=== PATIENT | male | born 1955 | race Caucasian/White ===

== ENCOUNTER 2017-01-31 16:24 | Emergency (ER) | payer OTHER ==
--- NOTE | ~2017-01-31 | EKG ---
PATIENT: AMANDA MULLINS UNIT #: [id number] Ventricular Rate: 72 BPM Atrial Rate: 72 BPM P-R Interval: 134 ms QRS Duration: 86 ms Q-T Interval: 398 ms QTC Calculation(Bezet): 435 ms P [place]: 30 degrees Calculated R [place]: 7 degrees Calculated T [place]: 37 degrees Diagnosis Line: Normal sinus rhythm Diagnosis Line: Non Diagnostic Q in Lead Inferior leads Otherwise Diagnosis Line: normal ECG Diagnosis Line: When compared with ECG of 05-SEP-2014 07:41, Diagnosis Line: No significant change was found Diagnosis Line: Confirmed by OCHOA DE LEON MD ([id number]) on 02/02/2017 Diagnosis Line: 5:49:48 PM INTERPRETING MD: MOISES KOLB
--- NOTE | ~2017-01-31 | CR72 ---
[facility] A Service of [facility] RADIOLOGY TEXT RESULTS PATIENT: AMANDA MULLINS LOCATION: SED : 53 UNIT #: [id number] AGE: [address]: Cesar Jane PAC SEX: M ORDER DR: [id number] [place] [id number] [id number] E MR#: [id number] Acc #: [id number] NAME: AMANDA MULLINS : 1955 SEX: M STUDY DATE/TIME: 01/31/2017 17:05 UNIT: SED ROOM: STUDY DESCRIPTION: CR Chest Single View Portable Attending Physician: Cesar Jane P.A.-C. Referring Physician: Cesar Jane P.A.-C. Ordering Physician: Andi Go M.D. MEDICAL IMAGING REPORT This report is preliminary unless electronic signature is present. EXAM Portable chest INDICATIONS Chest pain for the past 2 hours. TECHNIQUE Frontal view chest. COMPARISON 04/30/2009. FINDINGS Stable cardiomegaly. Persistent low lung volumes. No new dense consolidation. No visible pneumothorax. IMPRESSION Cardiomegaly and low lung volumes are very similar to 2008. No definite acute findings. Dictated by... Surendra Ramos M.D. THIS IS AN ELECTRONICALLY VERIFIED REPORT Surendra Ramos M.D. at 02/01/2017 7:36 AM EED/pcl TD: 01/31/2017 23:23 JOB #: [id number] [facility] A Service of [facility] RADIOLOGY TEXT RESULTS PATIENT: AMANDA MULLINS LOCATION: SED : 53 UNIT #: [id number] AGE: [address]: Cesar Jane PAC SEX: M ORDER DR: MEDICAL IMAGING REPORT Page 1 of 1
[~2017-01-31 16:24] MED LIST: ASPIRIN PO; LISINOPRIL PO; PREDNISONE PO
[2017-01-31] MEDS ORDERED: WATER PILL PO (16:26)
[2017-01-31] MEDS ORDERED: CHOLESTEROL PILL PO (16:26)
[2017-01-31 17:01] LABS: BASOPHIL# 0.1 X10e3 (0-0.3); BASOPHIL% 1.1 % (0-2.5); EOSINOPHIL# 0.2 X10e3 (0-0.7); EOSINOPHIL% 4.1 % (0.0-7.0); HEMATOCRIT 41.1 % (38.0-50.0); HEMOGLOBIN 14.4 gm/dL (13.0-16.0); LYMPHOCYTE% 36.8 % (17.0-45.0); MEAN CELL VOLUME 91.5 FL (83-96); MEAN CORPUSCULAR HEMOGLOBIN 32.1 PG (28-34); MEAN CORPUSCULAR HGB CONC 35.1 g/dL (30-36); MEAN PLATELET VOLUME 8.7 FL (6.5-11.5); MONOCYTE# 0.5 X10e3 (0-1.0); NEUTROPHIL# 2.7 X10e3 (1.5-7.1); PLATELET COUNT 215 X10e3 (140-420); RED BLOOD COUNT 4.49 X10e (3.90-5.60); RED CELL DISTRIBUTION WIDTH 13.2 % (11.0-15.5); WHITE BLOOD COUNT 5.5 X10e3 (4.0-10.5)
[2017-01-31 17:10] LABS: DIFF IND NO
[2017-01-31 17:22] LABS: ALBUMIN SERUM 4.8 g/dL (3.5-5.0); BILIRUBIN, DIRECT 0.1 mg/dL (0.0-0.2); BILIRUBIN,INDIRECT 0.6 mg/dL (0.0-0.9); BILIRUBIN,TOTAL 0.7 mg/dL (0.2-2.0); CALCIUM SERUM 9.2 mg/dL (8.4-10.2); GLOM FILT RATE Estimated 80.3 mL/min (>60); POTASSIUM 4.1 mmol/L (3.5-5.1); PROTEIN TOTAL SERUM 7.8 g/dL (6.0-8.3)
[2017-01-31 17:23] LABS: POC - CKMB 2.5 ng/mL (0.0-7.9); POC - TROPONIN <0.05 ng/mL (<=0.05)
[2017-01-31 17:27] LABS: PROTHROMBIN TIME (PATIENT) 11.5 SECONDS (9.5-12.4)
[2017-01-31 17:34] LABS: PARTIAL THROMBOPLASTIN TIME 28.7 SECONDS (25.6-38.1)
[2017-01-31 19:15] LABS: POC - CKMB 1.1 ng/mL (0.0-7.9); POC - TROPONIN <0.05 ng/mL (<=0.05)
== END 2017-01-31 19:27 | disposition home or self-care (01) ==
LOC: SED 16:24
PROVIDERS: Emergency Medicine; Physician Assistant
DX: R07.89 Other chest pain (principal); I10 Essential (primary) hypertension; E78.5 Hyperlipidemia, unspecified; F17.200 Nicotine dependence, unspecified, uncomplicated; Z90.49 Acquired absence of other specified parts of digestive tract; Z98.890 Other specified postprocedural states; Z88.0 Allergy status to penicillin; Z86.718 Personal history of other venous thrombosis and embolism
CPT/HCPCS: 36415; 71010; 80048; 80076; 82553; 84484; 85025; 85610; 85730; 93005; 99284